=== PATIENT | male | born 1960 | race Caucasian/White ===

== ENCOUNTER 2023-07-08 16:32 | Emergency (ER) | payer MEDICARE, OTHER, SELFPAY ==
[2023-07-08 16:40] VITALS: BP 206/120; PULSE 64; RESP 16; TEMP 37.2; O2SAT 97; BMI 29.4
--- NOTE | 2023-07-08 16:45 | W.ED.EPISTAX ---
HPI - Epistaxis General: Chief complaint: Epistaxis Stated complaint: nose bleed (1:30pm) Time Seen by Provider: 07/08/23 16:45 History of Present Illness: 62-year-old male presents emerged department complaints of a nosebleed to the right side of his nose. He denies known injury or trauma. He states that started last night he does sleep with his window open does see with appropriate here. He states he has continued to bleed intermittently throughout the evening and again today started approximately 130 and is continued since then. He states that he has felt nauseated because he swallowed so much blood. He states she does take 81 mg aspirin per day and has a history of hypertension and has not missed any antihypertensive medications. He denies headache or blurred vision or dizziness. He denies chest pain or shortness of breath. Review of Systems General: Reports: 10 or more systems reviewed and unremarkable except in HPI and below ENMT: Reports: epistaxis Physical Exam Narrative: EXAM NARRATIVE: The patient appeared well nourished and normally developed. Vital signs as documented. Head exam is unremarkable. No scleral icterus or corneal arcus noted. Nose: Epistaxis noted to the right nare active bleeding with dried blood around the outer edges. Mucous membranes are moist Neck is without jugular venous distension, thyromegaly, or carotid bruits. Carotid upstrokes are brisk bilaterally. Lungs are clear to auscultation and percussion. Cardiac exam reveals the PMI to be normally sized and situated. Rhythm is regular. First and second heart sounds normal. No murmurs, rubs or gallops. Abdominal exam reveals normal bowel sounds, no masses, no organomegaly and no aortic enlargement. Extremities are non-edematous and both femoral and pedal pulses are normal. Procedures Epistaxis Control Time Out Performed: Yes Nostril: bilateral Direct Inspection: yes and posterior source indentified Clots Removed by: blowing nose Device Inserted: hemostatic balloon Device Size: 4 Patient Tolerated Procedure: well Course Vital Signs: Vital signs: Vital Signs Temperature 99.0 F 07/08/23 16:40 Pulse Rate 64 07/08/23 16:40 Respiratory Rate 16 07/08/23 16:40 Blood Pressure 206/120 07/08/23 16:40 Pulse Oximetry 97 07/08/23 16:40 Oxygen Delivery Me thod Room Air 07/08/23 16:40 MDM - Epistaxis Medical Decision Making Physical exam completed document, I will provide direct pressure as well as ice compress and attempts to clementina the patient's epistaxis. Medical Records I reviewed the patient's medical records. No radiology studies performed this visit Discharge Plan Discharge Patient Disposition: Home Clinical Impression: Epistaxis Condition: Stable Discharge Orders: Discharge ED (Routine); Ordered 07/08/23 Ordered By: Blayne Dimas Referrals: Luis Salas, [Physician] - Discharge Diet: Advance as tolerated Discharge Activity: Resume usual activity Patient Instructions: Opioid Safety, Pain Management Activity Restrictions/Additional Instructions: Activity Restrictions/Additional Instructions: Thank you for choosing [facility] for your healthcare needs today. Please realize that you were seen in the Emergency Department and that we are providing you with an emergency medical screening exam and this may not be complete and all inclusive of all the testing and or medical work-up that you may need to determine your ailment or severity of your illness. It is very important that you follow-up as instructed with your Primary care provider or Specialist for additional evaluation and to discuss your medical treatment plan. You may return to the Emergency Department should you have concerns or if your condition changes or worsens in any way. Coding Level of Care Code ED Loss Prevention Analyst for Annamarie Luke
--- NOTE | 2023-07-08 17:18 | PC.NURSE ---
170- Dr Dimas placed a large q tip in right nare 171- removed- clot came out with it- Dr looked in nare and seen the bleed, Dr at the bedside holding pressure 1725- rhino stef placed
[2023-07-08] MEDS: acetaminophen 500 mg Tablet 1000 MG PO (18:36)
== END 2023-07-08 18:40 | disposition home or self-care (01) ==
PROVIDERS: Emergency Provider Internal Medicine
DX: R04.0 Epistaxis (principal)
CPT/HCPCS: 30901; 99283

== ENCOUNTER 2024-04-26 23:51 | Inpatient (IN) | payer MEDICARE, SELFPAY ==
[2024-04-26 23:52] VITALS: BP 210/126; PULSE 82; RESP 82; TEMP 36.6; O2SAT 96; BMI 31.6
--- NOTE | 2024-04-26 23:57 | XRR_ITS ---
PROCEDURE INFORMATION: Exam: XR Chest Exam date and time: 04/27/2024 12:02 AM Age: 63 years old Clinical indication: Shortness of breath; Patient HX: EMS arrival fro SOB and hypoxia TECHNIQUE: Imaging protocol: Radiologic exam of the chest. Views: 1 view. COMPARISON: No relevant prior studies available. FINDINGS: Lungs: Septal lines noted in the periphery of each lung. Moderate pulmonary venous distension. Pleural spaces: Small right pleural effusion. No pneumothorax on either side. Heart/Mediastinum: Cardiomegaly. Vasculature: Azygos arch measures 1.6 cm in diameter. Normal contour aorta. Bones/joints: Age appropriate. XR/XR chest 1V portable [id number] IMPRESSION: Constellation of findings is compelling for biventricular heart failure.
--- NOTE | 2024-04-26 23:58 | ECG_ITS ---
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1960 Requested By: Cesar Harden Order Number: [id number] Akanksha MD: MORRIS MCDANIEL Measurements Intervals [place] Rate: 82 P: 45 AL: 212 QRS: 114 QRSD: 175 T: -5 QT: 429 QTc: 502 Interpretive Statements SINUS RHYTHM WITH FIRST DEGREE AV BLOCK POSSIBLE LEFT ATRIAL ENLARGEMENT [-0.1mV P-WAVE IN V1/V2] RIGHT AXIS DEVIATION [QRS AXIS > 100] LEFT BUNDLE BRANCH BLOCK [120+ ms QRS DURATION, 80+ ms Q/S IN V1/V2, 85+ ms R IN I/aVL/V5/V6] No previous ECG available for comparison Electronically Signed On 04-27-2024 18:51:11 CDT by MORRIS MCDANIEL [id number]
[2024-04-27] VITALS (13 sets, daily range): BP systolic 138–198; BP diastolic 82–116; PULSE 62–77; RESP 16–23; TEMP 36.7; O2SAT 93–97; BMI 31.1
[2024-04-27 00:07] LABS: Basophils # 0.1 10^3/uL (0.0-0.1); Basophils % 0.7 %; Eosinophils # 0.2 10^3/uL (0.0-0.8); Eosinophils % 1.6 %; Lymphocytes # 1.7 10^3/uL (0.8-4.8); Lymphocytes % 18.6 %; Mean Corpuscular HGB Conc 32.3 g/dL (30-55); Mean Corpuscular Hemoglobin 29.4 pg (27-33); Mean Corpuscular Volume 90.9 fl (82-101); Mean Platelet Volume 10.7 fL (7.4-10.4); Monocytes # 0.7 10^3/uL (0.2-0.9); Monocytes % 7.1 %; Neutrophils # 6.54 10^3/uL (1.8-7.7); Neutrophils % 71.7 %; Nucleated Red Blood Cells % 0 %; Platelet Count 161 10^3/cmm (157-399); Red Blood Count 4.73 10^6/uL (3.85-5.65); White Blood Count 9.13 10^3/uL (3.29-11.43)
[2024-04-27] MEDS: nitroglycerin 1 gm/inch oint Pkt 2 INCH TOPICAL (00:10)
--- NOTE | 2024-04-27 00:11 | ED_ITS ---
HPI - SOB/Dyspnea 2 General: Chief Complaint: Shortness of Breath/Dyspnea Stated Complaint: SOB Time Seen by Provider: 04/26/24 23:52 History of Present Illness: HPI Narrative: 63-year-old gentleman with what sounds l avis nonischemic cardiomyopathy. 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 He presents with onset of shortness of breath progressing over the last few hours. He called 911 when he felt as if he could not breathe on his own. He improved with Solu-Medrol, breathing treatment, and oxygen on the way here. His blood pressure was quite high on their arrival. He was given sublingual nitroglycerin for this and route. He denies fever. He denies sputum production. He has been coughing tonight. He denies chest pain. Related Data Allergies Allergy/AdvReac Type Severity Reaction Status Date / Time No Known Allergies Allergy Verified 07/08/23 16:38 Physical Exam 2 Const: GENERAL APPEARANCE: cooperative, ill appearing and diaphoretic; not frail appearing HENMT: COMMON NORMALS: normocephalic, atraumatic and Normal external nose present HEAD & SCALP: normocephalic and atraumatic FACE & SINUS: normal facial exam and face symmetric NOSE: Normal external nose present Eye: COMMON NORMALS: Equal, round and reactive pupils present and EOMs intact bilaterally PUPIL: Yes Equal, round and reactive pupils present Neck/C-Spine: GENERAL: Yes trachea midline Chest: CHEST: Yes Symmetrical chest wall rise Resp: EFFORT & INSPECTION: Yes symmetric chest movement, Yes tachypneic and Yes uses accessory muscles AUSCULTATION: rales and diminished lung sounds Cardio: COMMON NORMALS: regular rate and regular rhythm RATE: regular rate RHYTHM: regular rhythm GI: COMMON NORMALS: Normal to inspection, nondistended, normoactive bowel sounds present Extremity: GENERAL: Yes edema Neuro: DONNA COMA SCALE: document GCS findings Donna coma scale eye opening: Spontaneous Donna coma scale verbal response: Orientated Donna coma scale motor response: Obey commands [place] coma scale total score: 15 S ENSORY EXAM: Yes extremities (intact) Psych: COMMON NORMALS: speech normal SPEECH: Yes normal speech Skin: COMMON NORMALS: no rashes or lesions noted GENERAL SKIN EXAM: no rashes or lesions noted Course 2 Vital Signs: Vital signs: Vital Signs Temperature 98 F 04/26/24 23:52 Pulse Rate 75 09/08/24 01:01 Respiratory Rate 16 04/27/24 01:01 Blood Pressure 159/89 04/27/24 01:01 Pulse Oximetry 97 04/27/24 01:01 MDM - SOB/Dyspnea Medical Decision Making 63-year-old male with hypoxic respiratory failure. He was quite hypertensive on arrival. 2 inches of Nitropaste placed on the chest, 80 mg of Lasix given. Blood pressures down to the 160 systolic range. CBC is normal. BMP shows a blood sugar of 184 and a creatinine of 1.2. Chest x-ray shows pulmonary edema. Baseline troponin is 21. Lactic acid is 1.7. BNP is 4000. EKG shows a left bundle branch block. The patient does not have chest pain. He is breathing easier on oxygen. He is beginning to diurese. Notified hospitalist. He will be admitted for hypoxic respiratory failure with pulmonary edema. Lab Data 04/27/24 00:02 04/27/24 00:02 Labs/Radiology: Radiology Impressions Chest X-Ray 04/26/24 23:57 IMPRESSION: Constellation of findings is compelling for biventricular heart failure. Laboratory Results WBC 9.13 10^3/uL (3.29-11.43) 04/27/24 00:02 RBC 4.73 10^6/uL (3.85-5.65) 04/27/24 00:02 Hgb 13.90 g/dL (11.27-16.99) 04/27/24 00:02 Hct 43.0 % (37-53) 04/27/24 00:02 MCV 90.9 fl (82-101) 04/27/24 00:02 MCH 29.4 pg (27-33) 04/27/24 00:02 MCHC 32.3 g/dL (30-55) 04/27/24 00:02 RDW 15.0 % (12.1-15.1) 04/27/24 00:02 Plt Count 161 10^3/cmm (157-399) 04/27/24 00:02 MPV 10.7 fL (7.4-10.4) H 04/27/24 00:02 Neut % (Auto) 71.7 % 04/27/24 00:02 Lymph % (Auto) 18.6 % 04/27/24 00:02 [place] % (Auto) 7.1 % 04/27/24 00:02 Eos % (Auto) 1.6 % 04/27/24 00:02 Baso % (Auto) 0.7 % 04/27/24 00:02 Neut # (Auto) 6.54 10^3/uL (1.8-7.7) 04/27/24 00:02 Lymph # (Auto) 1.7 10^3/uL (0.8-4.8) 04/27/24 00:02 [place] # (Auto) 0.7 10^3/uL (0.2-0.9) 04/27/24 00:02 Eos # (Auto) 0.2 10^3/uL (0.0-0.8) 04/27/24 00:02 Baso # (Auto) 0.1 10^3/uL (0.0-0.1) 04/27/24 00:02 Nucleated RBC % (auto) 0 % 04/27/24 00:02 Nucleated RBCs # 0.0 /100WBC 04/27/24 00:02 Specimen Type Arterial 04/27/24 00:34 Sample Site Radial, right 04/27/24 00:34 ABG pH 7.39 (7.35-7.45) 04/27/24 00:34 ABG pCO2 49.0 mmHg (35-45) H 04/27/24 00:34 ABG pO2 63.2 mmHg (80.0-100.0) L 04/27/24 00:34 ABG PO2/FiO2 Ratio 1053 04/27/24 00:34 ABG HCO3 29.5 mmol/L (22-26) H 04/27/24 00:34 ABG Base Excess 3.5 mmol/L (-2.0-2.0) H 04/27/24 00:34 Robinson Test Pos 04/27/24 00:34 Hematocrit 44.0 % (42-52) 04/27/24 00:34 Hgb O2 Saturation 89.4 % (95-100) L 04/27/24 00:34 Carboxyhemoglobin 2.6 %THgb (0.4-20.1) 04/27/24 00:34 Methemoglobin 0.2 % (0.4-1.5) L 04/27/24 00:34 Total Hemoglobin 14.4 g/dL (14-18) 04/27/24 00:34 O2 Delivery Device Nc 04/27/24 00:34 FiO2 6.0 % 04/27/24 00:34 Trade Recruiter ID Jean Paul 04/27/24 00:34 Sodium 142 mmol/L (136-145) 04/27/24 00:02 Potassium 4.6 mmol/L (3.5-5.1) 04/27/24 00:02 Chloride 103 mmol/L (98-107) 04/27/24 00:02 Carbon Dioxide 28 mmol/L (22-29) 04/27/24 00:02 Anion Gap 15.6 (5-19) 04/27/24 00:02 BUN 29 mg/dL (8-23) H 04/27/24 00:02 Creatinine 1.2 mg/dL (0.7-1.2) 04/27/24 00:02 GFR Calculation 61.3 mL/min (90-130) L 04/27/24 00:02 Glucose 184 mg/dL (65-115) H 04/27/24 00:02 Calculated Osmolality 305 mOsm/kg (285-295) H 04/27/24 00:02 Lactic Acid 1.7 mmol/L (0.5-2.2) 04/27/24 00:02 Calcium 8.9 mg/dL (8.5-10.5) 04/27/24 00:02 Troponin T Baseline 21 ng/L (0-15) H 04/27/24 00:02 NT-Pro-B Natriuret Pep 4137 pg/mL (0-125) H 04/27/24 00:02 Urine Color Dark yellow (Yellow) A 04/27/24 00:33 Urine Appearance Error (CLEAR) A 04/27/24 00:33 Urine pH 7.0 (5-7) 04/27/24 00:33 Ur Specific [place] 1.021 (1.005-1.030) 04/27/24 00:33 Urine Protein Negative (Negative) 04/27/24 00:33 Urine Glucose (UA) Negative (Normal) 04/27/24 00:33 Urine Ketones Negative (Negative) 04/27/24 00:33 Urine Blood Negative (Negative) 04/27/24 00:33 Urine Nitrate Negative (Negative) 04/27/24 00:33 Urine Bilirubin Negative (Negative) 04/27/24 00:33 Urine Urobilinogen 1.0 mg/dL (Negative) 04/27/24 00:33 Ur Leukocyte Esterase Negative (Negative) 04/27/24 00:33 Urine RBC 0-2 /hpf (0-2) 04/27/24 00:33 Urine WBC 0-5 /hpf (0-5) 04/27/24 00:33 Ur Squamous Epith Cells 0-5 /hpf (0-5) 04/27/24 00:33 Amorphous Sediment Not Reportable 04/27/24 00:33 Urine Bacteria None seen /hpf (NONE) 04/27/24 00:33 Hyaline Casts 2.05 /lpf 04/27/24 00:33 All radiology interpretation(s) finalized by discharge Discharge Plan Discharge Patient Disposition: Admitted As Inpatient Clinical Impression: Acute hypoxic respiratory failure, Pulmonary edema Condition: Serious Coding Level of Care Code ED Computer Systems Hardware Analyst for Annamarie Luke
[2024-04-27] MEDS: FUROsemide 10 mg/mL SDV 10mL 80 MG IVP (00:13)
[2024-04-27 00:37] LABS: Charge for UA Resulting for Rev
[2024-04-27 00:37] LABS: Lactic Sepsis W/Reflex 1.7 mmol/L (0.5-2.2)
[2024-04-27 00:42] LABS: Troponin(5th) Baseline 21 ng/L (0-15)
[2024-04-27 00:47] LABS: Bacteria Urine None Seen /hpf; Hyaline Casts Urine 2.05 /lpf; RBC Urine 0-2 /hpf (0-2); Squamous Epithelial Cell Urine 0-5 /hpf (0-5); WBC Urine 0-5 /hpf (0-5)
[2024-04-27 00:48] LABS: Blood Urea Nitrogen 29 mg/dL (8-23); Calcium 8.9 mg/dL (8.5-10.5); Carbon Dioxide 28 mmol/L (22-29); Chloride 103 mmol/L (98-107); Creatinine Clr Calc Pharmacy 82.5904; Glomerular Filtration Rate 61.3 mL/min (90-130); Glucose 184 mg/dL (65-115); NT Pro B Type Natriuretic Pept 4137 pg/mL (0-125); Osmolality Calculated 305 mOsm/kg (285-295); Sodium 142 mmol/L (136-145)
[2024-04-27 00:50] LABS: ABG PH Result 7.39 (7.35-7.45); Base Excess ABG 3.5 mmol/L (-2.0-2.0); Blood Gas Allen Test Pos; Blood Gas Sample Type Arterial; Carboxyhemoglobin 2.6 %THgb (0.4-20.1); HCO3 ABG 29.5 mmol/L (22-26); HGB O2 Sat 89.4 % (95-100); Methemoglobin 0.2 % (0.4-1.5); PO2 ABG 63.2 mmHg (80.0-100.0); Total Hemoglobin 14.4 g/dL (14-18)
[2024-04-27 00:51] LABS: Blood Gas Operator Identificat SAM; Blood Gas Sample Site Radial, right; Oxygen Device NC; PO2 FiO2 Ratio Arterial Blood 1053
[2024-04-27 00:54] LABS: Anion Gap 15.6 (5-19); Potassium 4.6 mmol/L (3.5-5.1)
[2024-04-27 00:58] LABS: Bilirubin Urine Negative (Negative); Blood Urine Negative (Negative); Glucose Urine UA Negative (Normal); Ketones Urine Negative (Negative); Leukocyte Esterase Urine Negative (Negative); Nitrate Urine Negative (Negative)
--- NOTE | 2024-04-27 01:58 | ECG_ITS ---
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1960 Requested By: Cesar Harden Order Number: [id number] Akanksha MD: MORRIS MCDANIEL Measurements Intervals [place] Rate: 70 P: 30 DC: 192 QRS: 37 QRSD: 178 T: -51 QT: 456 QTc: 492 Interpretive Statements SINUS RHYTHM POSSIBLE LEFT ATRIAL ENLARGEMENT [-0.1mV P-WAVE IN V1/V2] LEFT BUNDLE BRANCH BLOCK [120+ ms QRS DURATION, 80+ ms Q/S IN V1/V2, 85+ ms R IN I/aVL/V5/V6] Compared to ECG 04/26/2024 23:55:29 First degree AV block no longer present Right-axis deviation no longer present Electronically Signed On 04-27-2024 18:57:03 CDT by MORRIS MCDANIEL [id number]
[2024-04-27 02:08] LABS: Adenovirus Not Detected (NOT DETECT); Chlamydia Pneumoniae Not Detected (NOT DETECT); Coronavirus 229E,HKU1,NL63,OC4 Not Detected (NOT DETECT); Human Metapneumovirus Not Detected (NOT DETECT); Human Rhinovirus/Enterovirus Not Detected (NOT DETECT); Influenza A Not Detected (NOT DETECT); Influenza A H1 Not Detected (NOT DETECT); Influenza A H1-2009 Not Detected (NOT DETECT); Influenza A H3 Not Detected (NOT DETECT); Influenza B Not Detected (NOT DETECT); Mycoplasma Pneumoniae Not Detected (NOT DETECT); Parainfluenza Virus Type 1 Not Detected (NOT DETECT); Parainfluenza Virus Type 2 Not Detected (NOT DETECT); Parainfluenza Virus Type 3 Not Detected (NOT DETECT); Parainfluenza Virus Type 4 Not Detected (NOT DETECT); Respiratory Syncytial Virus A Not Detected (NOT DETECT); Respiratory Syncytial Virus B Not Detected (NOT DETECT); SARS-COV-2 Not Detected (NOT DETECT)
[2024-04-27 02:19] LABS: Troponin 5 2HR 25.04 ng/L (0-15); Troponin 5 2HR Delta 4.04 ABS# (0-10)
--- NOTE | 2024-04-27 02:20 | CTR_ITS ---
PROCEDURE INFORMATION: Exam: CTA Chest With Contrast Exam date and time: 04/27/2024 3:51 AM Age: 63 years old Clinical indication: Shortness of breath; Patient HX: SOB with hypoxia. History of pericardial effusion. TECHNIQUE: Imaging protocol: Computed tomographic angiography of the chest with contrast. Exam focused on the arteries. 3D rendering (Not supervised by radiologist): MIP and/or 3D reconstructed images were created by the technologist. Radiation optimization: All CT scans at this facility use at least one of these dose optimization techniques: automated exposure control; mA and/or kV adjustment per patient size (includes targeted exams where dose is matched to clinical indication); or iterative reconstruction. Contrast material: OMNI 350; Contrast volume: 75 ml; Contrast route: INTRAVENOUS (IV); COMPARISON: CR (CHEST, ) 04/27/2024 12:02 AM RADIATION DOSE METRICS: Total DLP (mGy-cm): 440.51 FINDINGS: Pulmonary arteries: Within the left lower lobe there are a few partialfilling defects within the distal segmental and subsegmental pulmonary arteries. Aorta: Scattered atherosclerotic disease of the visualized aorta. Lungs: Scattered granulomas. Mosaic attenuation diffusely, likely secondary to air trapping. Pleural spaces: Bilateral pleural effusions with associated atelectasis. Heart: Unremarkable. No cardiomegaly. No pericardial effusion. Heart RV/LV ratio: The RV to LV ratio is 0.79. Coronary arteries: Moderate calcified atherosclerotic disease of the coronary vasculature. Lymph nodes: Scattered mediastinal lymph nodes not reaching size criteria for pathology. Left hilar and left mediastinal calcified lymph nodes. Liver: Hepatic granuloma. Spleen: Splenic granulomas. Bones/joints: Diffuse degenerative change of the visualized osseous structures. Soft tissues: Bilateral gynecomastia. CT/CT angio chest PE protcl [id number] IMPRESSION: 1. Partial filling defects within the segmental and subsegmental pulmonary arteries of the left lower lobe consistent with partially occlusive pulmonary emboli. No evidence for heart strain. 2. Bilateral pleural effusions with associated atelectasis, difficult to exclude infection. 3. Incidental findings as above.
--- NOTE | 2024-04-27 02:23 | P.HP_ITS ---
Providers/Chief Complaint 2 Admitting Physician: Yaw Bello MD Chief Complaint: SOB History of Present Illness Gen Stone is a 63 year old male with a past medical history of nonischemic cardiomyopathy, CAD OPD, who presents to [facility] for shortness of breath. Patient reports that this evening he had sudden onset shortness of breath, does report increased lower extremity edema, does report prior history of smoking, he denies wheezing, denies a cough, no fevers, no chills, denies any chest discomfort, no lightheadedness, no dizziness, no hemoptysis no recent surgery Review of Systems 2 Card: Denies: chest pain Resp: Reports: dyspnea Medications/Allergies Allergies Allergy/AdvReac Type Severity Reaction Status Date / Time No Known Allergies Allergy Verified 07/08/23 16:38 PFSH Acute 2 PFSH: Medical History History of CHF (congestive heart failure) History of COPD Surgical History S/P pericardiocentesis Family History Father Cancer Mother Colon cancer Social History (Updated 04/27/24 @ 02:26 by Yaw Bello MD) Smoking and tobacco/nicotine status: former use of tobacco/nicotine Alcohol intake: current Substance/Drug Use: never Vitals/I&O/Wt Last Vital Signs Temp 98 F 04/26/24 23:52 Pulse 71 04/27/24 02:07 Resp 18 04/27/24 02:07 BP 168/96 04/27/24 02:07 Pulse Ox 96 04/27/24 02:07 O2 Del Method Nasal Cannula 04/27/24 02:00 O2 Flow Rate 3 04/27/24 02:00 Weight last 48 hrs Weight 108.862 kg Physical Exam 2 Const: COMMON NORMALS: no acute distress and patient oriented x3 HENMT: COMMON NORMALS: normocephalic HEAD & SCALP: normocephalic Eye: COMMON NORMALS: Equal, round and reactive pupils present and EOMs intact bilaterally Neck/C-Spine: COMMON NORMALS: no JVD Resp: COMMON NORMALS: normal respiratory effort, No retractions and No use of accessory muscles Cardio: COMMON NORMALS: regular rate, regular rhythm, S1 normal heart sound present and S2 normal heart sound present RATE: regular rate RHYTHM: r egular rhythm HEART SOUNDS: S1 normal heart sound present and S2 normal heart sound present GI: COMMON NORMALS: Normal to inspection, nondistended, normoactive bowel sounds present, Soft to palpation and non-tender PALPATION: Yes Soft to palpation Extremity: NARRATIVE EXTREMITY EXAM: 2+ pitting edema bilateral extremity Neuro: COMMON NORMALS: patient oriented x3, CN's II-XII intact bilaterally and moves all extremities Psych: COMMON NORMALS: mental status grossly normal Data 04/27/24 00:02 04/27/24 00:02 Micro: Microbiology 04/27/24 00:25 Blood Culture - Preliminary Blood SPECIMEN COLLECTED 04/27/24 00:22 Blood Culture - Preliminary Blood SPECIMEN COLLECTED A&P Assessment and plan (1) Acute hypoxic respiratory failure: (2) Pulmonary edema: Plan Acute hypoxic respiratory failure -Likely secondary to CHF -Pulmonary edema Plan ? Given his sudden onset complaints of shortness of breath will order CT angiogram the chest to rule out pulmonary embolism -Given 80 mg IV push Lasix in the ER -Start 40 mg IV push Lasix starting at noon -Will recheck BMP at 8 AM -Monitor creatinine monitor urine output monitor potassium -Cardiac echo -Serial EKGs, serial troponins, telemetry monitoring -Full code -Lovenox for DVT prophylaxis ? Hypertension, and normal sinus 2 mg daily Attestations 2 Medical Necessity Statement*: Patient requires hospitalization, for acute hypoxic respiratory failure secondary to CHF, pulmonary edema, greater than 2 minutes Diagnoses Acute hypoxic respiratory failure J96.01 Pulmonary edema J81.1
--- NOTE | 2024-04-27 02:24 | USCV_ITS ---
Gen Stone Age: 63 Gender: M : 1960 Exam Date: 04/27/2024 09:13 Ordering Phys: Yaw Bello MD Technologist: Alex Tripathi [place] [facility] [place]: sob BP: 167 / 93 HR: 70 Rhythm: Sinus Technical Quality: Adequate MEASUREMENTS (Male / Female) Normal Values 2D ECHO LV Diastolic Diameter PLAX 4.3 cm 4.2 - 5.9 / 3.9 - 5.3 cm IVS Diastolic Thickness 1.5 cm 0.6 - 1.0 / 0.6 - 0.9 cm IVS Systolic Thickness 1.8 cm LVPW Diastolic Thickness 2.6 cm 0.6 - 1.0 / 0.6 - 0.9 cm LVPW Systolic Thickness 2.4 cm LVOT Diameter 2.1 cm LV Ejection Fraction 2D Teich 77.6 % LV Ejection Fraction MOD 4C 43.5 % LV Ejection Fraction MOD 2C 50.0 % LV Ejection Fraction 2C AL 50.9 % LA Diameter 3.1 cm RA Systolic Volume 4C AL 77.2 ml RA Systolic Volume 4C MOD 79.3 ml LA Sys Volume AL 82.2 cm cubed LA Sys Volume Index AL 34.8 cm cubed/m squared Aorta at Sinotubular Diameter 2.3 cm IVC Diameter 1.6 cm M-MODE LA Ao Ratio MM 1.2 AV Cusp Separation MM 1.9 cm DOPPLER AV Peak Velocity 196.0 cm/s LVOT Peak Velocity 154.0 cm/s AV Area Cont Eq vti 3.0 cm squared AV Area Cont Eq pk 2.8 cm squared MV Peak Velocity 107.0 cm/s MV Area PHT 4.7 cm squared Mitral E to A Ratio 1.2 TR Peak Velocity 144.0 cm/s TR Peak Gradient 8.3 mmHg TR Mean Velocity 100.0 cm/s TR Mean Gradient 4.6 mmHg TR Velocity Time Integral 39.3 cm PV Peak Velocity 152.0 cm/s RV Ejection Time 0.3 s FINDINGS Left Ventricle Mildly increased left ventricular cavity size. Moderately decreased left ventricular systolic function. Left ventricular ejection fraction is estimated at 45 %. Grade I/IV diastolic dysfunction (abnormal relaxation filling pattern), normal to mildly elevated filling pressures. Right Ventricle The right ventricle is normal in size and function. Right Atrium The right atrium is normal in size. Left Atrium The left atrium is normal in size. Mitral Valve Mildly thickened mitral valve. No mitral valve stenosis. Moderate mitral valve regurgitation. Aortic Valve Mild aortic valve calcification. No aortic valve stenosis. Mild to moderate aortic valve regurgitation. Tricuspid Valve Structurally normal tricuspid valve without significant stenosis or regurgitation. Pulmonary artery systolic pressure is normal. Pulmonic Valve Structurally normal pulmonic valve without significant stenosis. There is no pulmonic regurgitation. Pericardium Normal pericardium without effusion. Aorta Normal ascending aorta dimension. IVC The inferior vena cava appears normal. CONCLUSIONS 1-Mildly increased left ventricular cavity size. Moderately decreased left ventricular systolic function. Left ventricular ejection fraction is estimated at 45 %. Grade I/IV diastolic dysfunction (abnormal relaxation filling pattern), normal to mildly elevated filling pressures. 2-Mildly thickened mitral valve. No mitral valve stenosis. Moderate mitral valve regurgitation. 3-Mild aortic valve calcification. No aortic valve stenosis. Mild to moderate aortic valve regurgitation. 4-There is no pericardial effusion. 5-Right atrial pressure is around 5 mm of mercury. Nathen Lagunas MD (Electronically Signed) Final Date: 27 April 2024 17:42 S
[2024-04-27 02:51] LABS: Estmated Average Glucose 120; Hemoglobin A1C 5.8 % (4.0-6.0)
[2024-04-27 03:00] LABS: Chol HDL Ratio 4.92 mg/dL (1.0-5.00); Cholesterol 182 mg/dL (0-200); HDL Cholesterol 37 mg/dL (60-100); LDL Cholesterol Calculated 134 mg/dL (50-129); LDL HDL Ratio 3.62 RATIO (0.00-3.22); Magnesium 1.8 mg/dL (1.7-2.3); Thyroid Stimulating Hormone 2.24 uIU/mL (0.27-4.20); Triglycerides 56 mg/dL (0-150)
[2024-04-27] MEDS: pantoprazole 40 mg SDV IVP (03:29)
[2024-04-27] MEDS: amlodipine 10 mg Tablet PO (03:29)
[2024-04-27] MEDS: enoxaparin 40 mg/0.4 mL Syringe SUBCUT (03:29)
[2024-04-27] MEDS: iohexol 350 mg/mL 500 mL Btl (per mL) IV (04:00)
[2024-04-27] MEDS: enoxaparin 80 mg/0.8 mL Syringe 70 MG SUBCUT (05:57)
--- NOTE | 2024-04-27 05:58 | ECG_ITS ---
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
[2024-04-27 06:29] LABS: Troponin 5 6HR 20.07 ng/L (0-15)
[2024-04-27 06:31] LABS: Troponin 5 6HR Delta -0.93 ng/L (0-12)
[2024-04-27 08:26] LABS: Anion Gap 15.9 (5-19); Blood Urea Nitrogen 31 mg/dL (8-23); Calcium 9.5 mg/dL (8.5-10.5); Carbon Dioxide 27 mmol/L (22-29); Chloride 101 mmol/L (98-107); Creatinine Clr Calc Pharmacy 89.0106; Glomerular Filtration Rate 67.8 mL/min (90-130); Glucose 192 mg/dL (65-115); Osmolality Calculated 302 mOsm/kg (285-295); Potassium 3.9 mmol/L (3.5-5.1); Sodium 140 mmol/L (136-145)
[2024-04-27 10:54] LABS: Amphetamines Screen Urine Negative (Negative); Barbiturates Screen Urine Negative (Negative); Benzodiazepines Screen Urine Negative (Negative); Cocaine Screen Urine Negative (Negative); Opiate Screen Urine Negative (Negative); PCP Screen Urine Negative (Negative); THC Screen Urine Negative (Negative)
[2024-04-27 11:03] LABS: Vitamin B12 530 pg/mL (232-1245)
--- NOTE | 2024-04-27 11:08 | P.SS_ITS ---
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 Patient reports that this evening he had sudden onset shortness of breath, does report increased lower extremity edema, does report prior history of smoking, he denies wheezing, denies a cough, no fevers, no chills, denies any chest discomfort, no lightheadedness, no dizziness, no hemoptysis no recent surgery. Review of Systems General: Reports: 10 or more systems reviewed and unremarkable except in HPI and below Const: Denies: fever(s), chills, body aches, change in appetite, change in weight, malaise, night sweats, diaphoresis, change in sleep pattern, daytime sleepiness or snoring Eyes: Denies: change in vision, blurry vision, photophobia, eye discomfort or eye discharge ENMT: Denies: throat pain, enlarged tonsils, hoarseness, mouth pain, oral sores, dry mouth, tinnitus, nasal congestion or post nasal drip Card: Denies: chest pain, palpitations, irregular heart rhythm, edema, swelling of feet/ankles, lightheadedness, syncope, pre-syncope, dyspnea on exertion, orthopnea, leg pain with exertion or acrocyanosis Resp: Denies: dyspnea, productive cough, non-productive cough, wheezing, stridor, pain on inspiration, change in phlegm color, hemoptysis or chest congestion GI: Denies: abdominal pain, nausea, vomiting, hematemesis, coffee ground emesis, dysphagia, heartburn, diarrhea, constipation, bloating, GI cramping, change in bowel habits, pain on defecation, hematochezia or melena : Denies: flank pain, difficulty urinating, dysuria, urinary frequency, urinary urgency, urinary hesitancy, urinary dribbling, difficulty starting urination, change in urine stream, nocturia or hematuria Musc: Denies: neck pain, back pain, extremity pain, joint pain, joint s welling, joint redness, joint stiffness or limited range of motion Neuro: Denies: headache(s), numbness in extremities, weakness in extremities, sensory changes, lack of coordination, difficulty walking, frequent falls, dizziness, vertigo, confusion, Slurred speech present, difficulty communicating thoughts or seizure-like activity Psych: Denies: anxiety, depression, mood swings, panic attacks, hopelessness or irritability Endo: Denies: polyuria, polydipsia, tired all the time, cold intolerance, excessive sweating, flushing or heat intolerance Greg/Lymph: Denies: easy bruising or easy bleeding All/Imm: Denies: tongue swelling, facial swelling or acute wheezing Home Meds/Allergies Home Medications and Allergies Home Medications Medication Instructions Recorded Confirmed Type bumetanide 1 mg tablet 1 mg PO DAILY 04/27/24 04/27/24 History carvedilol 25 mg tablet 37.5 mg PO BID 04/27/24 04/27/24 History doxazosin 8 mg tablet 8 mg PO BID 04/27/24 04/27/24 History doxycycline hyclate 100 mg tablet 100 mg PO DAILY 04/27/24 04/27/24 History irbesartan 300 mg tablet 300 mg PO DAILY 04/27/24 04/27/24 History potassium chloride 20 mEq 20 meq PO PRN PRN Electrolyte 04/27/24 04/27/24 History tablet,extended Replenishment release(part/cryst) (Klor-Con M) spironolactone 25 mg tablet 25 mg PO DAILY 04/27/24 04/27/24 History Allergies Allergy/AdvReac Type Severity Reaction Status Date / Time No Known Allergies Allergy Verified 07/08/23 16:38 PFSH Acute PFSH: Medical History (Updated 04/27/24 @ 11:13 by Ritesh Lott MD) Hyperlipidemia Congestive heart failure Nonischemic cardiomyopathy History of COPD Surgical History S/P pericardiocentesis Family History Father Cancer Mother Colon cancer Social History (Updated 04/27/24 @ 02:26 by Yaw Bello MD) Smoking and tobacco/nicotine status: former use of tobacco/nicotine Alcohol intake: current Substance/Drug Use: never Vitals/I&O/Wt Last Vital Signs Temp 98.0 F 04/27/24 07:50 Pulse 72 04/27/24 07:50 Resp 23 H 04/27/24 07:50 BP 167/93 04/27/24 07:50 Pulse Ox 95 04/27/24 07:50 O2 Del Method Room Air 04/27/24 07:50 O2 Flow Rate 3 04/27/24 02:00 04/26/24 04/27/24 04/27/24 22:59 06:59 14:59 Intake Total 480 / 480 Output Total 1200 / 1200 Balance -1200 / -1200 480 / 480 Weight last 48 hrs Weight 106.1 kg Weight 106.9 kg Weight 108.862 kg Physical Exam Narrative: General: No acute distress, AO x3, pleasant HEENT: PERRLA, pupils bilaterally equal and reactive Chest: Normal vesicular breath sounds, no added sounds, equal good air entry bilaterally CVS: S1-S2 regular, soft pansystolic murmur at apex no tachycardia, no gallops, no rubs Abdomen: Soft, nontender, no organomegaly, bowel sounds present Neuro: No focal deficits, no facial deformity, AO x3, power 5/5 in all limbs Hospital Course Admission Diagnoses Hypoxic respiratory failure due to pulmonary emboli Discharge Summary He was admitted to the hospital further evaluation and management of acute hypoxic and hypercapnic respiratory failure in setting of baseline nonischemic cardiomyopathy with possible congestive heart failure. He states he is supposed to be taking a diuretic as needed which he usually takes as less as possible because usually he gets severe cramps after taking diuretics. In the ER he underwent CTA which showed partial filling defect in left lower lobe consistent with partially occlusive pulmonary emboli without evidence of heart strain. Patient was started on full dose anticoagulation with Lovenox 1 mg/kg body weight every 12 hourly. Echocardiogram was done but results are currently pending. Patient wanted to be discharged home because he has to take care of his dog at home and remains on room air and hemodynamically stable during hospitalization hence he has been discharged in hemodynamically stable condition on his current antihypertensive, diuretics along with Eliquis 10 mg twice daily for next 7 days followed by 5 mg twice daily. Patient was encouraged in detail to have a local primary care provider to take care of his medical needs given his significant comorbidities. SSS Data Data Completed and Pending: Completed Studies During Hospitalization Category Date Time Status CT angio chest PE protcl [id number] Stat Cat Scan 04/27/24 02:20 Completed XR chest 1V deja ble [id number] Stat Exams 04/26/24 23:57 Completed Pending at discharge Category Date Time Status Blood Culture Sta t Lab 04/27/24 00:25 Results Complete Blood Co unt w/Auto AM LABS Lab 04/28/24 04:00 Ordered Comprehensive Met abolic Panel AM LA BS Lab 04/28/24 04:00 Ordered Folate Level AM L ABS Lab 04/28/24 04:00 Ordered MAG [Magnesium] A M LABS Lab 04/28/24 04:00 Ordered MAG [Magnesium] A M LABS Lab 04/29/24 04:00 Ordered MAG [Magnesium] A M LABS Lab 04/30/24 04:00 Ordered CV. echo complete * [id number] Routine Ultrasound 04/27/24 02:24 Taken Diagnoses at Discharge Discharge Diagnosis (1) Acute hypoxic respiratory failure: Status: Acute (2) Pulmonary edema: Status: Acute (3) Nonischemic cardiomyopathy: Status: Acute (4) Congestive heart failure: Status: Acute (5) Pulmonary emboli: Status: Acute Discharge Plan Discharge Patient Disposition: Home Condition: Stable Prescriptions: New Eliquis 5 mg tablet 5 mg PO BID 90 Days Qty: 180 0RF Rx Instructions: 10 mg twice daily for 7 days followed by 5 mg twice daily Continued carvedilol 25 mg tablet 37.5 mg PO BID doxazosin 8 mg tablet 8 mg PO BID doxycycline hyclate 100 mg tablet 100 mg PO DAILY irbesartan 300 mg tablet 300 mg PO DAILY potassium chloride [Klor-Con M20] 20 mEq tablet,ER particles/crystals 20 meq PO PRN MDD 20 PRN (Reason: Electrolyte Replenishment) spironolactone 25 mg Tablet 25 mg PO DAILY Bumex 1 mg Tablet 1 mg PO DAILY Discharge Orders: Discharge Order (Routine); Ordered 04/27/24 Ordered By: Ritesh Lott Discharge Diet: Cardiac Discharge Activity: Resume usual activity and Increase activity as tolerated Patient Instructions: Opioid Safety Activity Restrictions/Additional Instructions: Take Eliquis 10 mg twice daily for next 7 days followed by 5 mg twice daily. Follow-up with a outpatient business administration instructor within next 2 months. You should have a primary care provider with whom you should follow-up within next 1 week. Attestations Medical Necessity Statement*: Patient required admission for hypoxic respiratory failure in setting of nonischemic cardiomyopathy and pulmonary embolism who responded drastically well to the treatment and has remained hemodynamically stable and is currently on room air both at rest and ambulation Time Spent in Patient Care*: greater than 30 min Specific Discharge Activities: Specific discharge activities: educating patient, discussing with pcp/other providers, discussing with pillowcase folder/social workers/dc planners, documenting/other paperwork and evaluating patient/reviewing data Status at Discharge: Cognitive status at discharge: cognitively intact , Behavioral status at discharge: cooperative , Functional status at discharge: independent ambulation Overall status at discharge: patient is back to baseline Quality Metrics Clinical Quality Measures: [ Venous Thromboembolism { Contraindication to Overlap Therapy: None; Overlap threrpy ordered; VTE Discharge Education: Education about anticoagulant therapy/Care Notes given, Education about treatment options/disease process, Medication side effects education, INR/lab monitoring education as applicable, Follow-up arranged, Other; Deep Vein Thrombosis/Pulmonary Embolism Present on Admission: Yes;} ] Diagnoses Acute hypoxic respiratory failure J96.01 Pulmonary edema J81.1 Nonischemic cardiomyopathy I42.8 Congestive heart failure I50.9 Pulmonary emboli I26.99
[2024-04-27] MEDS: carvedilol 3.125 mg Tablet PO (11:34)
[2024-04-27] MEDS: FUROsemide 10 mg/mL SDV 4mL 40 MG IVP (11:34)
[2024-04-27 11:37] LABS: Specific Gravity, Urine 1.008 (1.005-1.030); Urine Appearance Clear (CLEAR); Urine Color Yellow (Yellow)
[2024-04-27 11:38] LABS: Protein Urine 2+ (Negative); Urobilinogen Urine 0.2 mg/dL (Negative)
--- NOTE | 2024-04-27 16:42 | PC.NURSE ---
Patient stayed an extended period of time after discharge because he was using [employer] to get home and I had just given him Lasix and he didn't think the company tanker truck driver would stop to let him urinate on the way home so he wanted to wait until the Lasix wore off. Discharged at 1640. Instructions given and pt reminded to picker and sorter load and unload his Eliquis at [facility] tomorrow.
== END 2024-04-27 16:42 | disposition home or self-care (01) | DRG 175 ==
LOC: ER 04-27 01:32 → CSU 04-27 01:53
PROVIDERS: Admitting Provider Family Medicine; Emergency Provider Emergency Medicine; Visit Provider Student in an Organized Health Care Education/Training Program
DX: I26.99 Other pulmonary embolism without acute cor pulmonale (principal); J96.01 Acute respiratory failure with hypoxia; J96.02 Acute respiratory failure with hypercapnia; I42.8 Other cardiomyopathies; E78.5 Hyperlipidemia, unspecified; I50.9 Heart failure, unspecified; I25.10 Atherosclerotic heart disease of native coronary artery without angina pectoris; Z87.891 Personal history of nicotine dependence
CPT/HCPCS: 36415; 36600; 71045; 71275; 80048; 80061; 80306; 81003; 81015; 82607; 82805; 83036; 83605; 83735; 83880; 84443; 84484; 85025; 87040; 87486; 87581; 87633; 93005; 93306; 94664; 96372; 96374; 99285; J1650; J1940; J2470

== ENCOUNTER 2024-07-14 14:45 | Outpatient (CLI) | payer MEDICARE, SELFPAY ==
--- NOTE | 2024-07-14 14:49 | USCV_ITS ---
Gen Stone Age: 63 Gender: M : 1960 Exam Date: 07/14/2024 15:09 Ordering Phys: Tammy Ghotra DNP Technologist: CT [place] [facility] [place]: BP: 140 / 89 HR: Rhythm: Sinus Technical Quality: Adequate MEASUREMENTS (Male / Female) Normal Values 2D ECHO LVOT Diameter 2.0 cm LV Ejection Fraction MOD 4C 44.2 % LV Ejection Fraction MOD 2C 63.6 % LV Ejection Fraction 2C AL 65.4 % LA Diameter 4.5 cm RA Systolic Volume 4C AL 63.3 ml RA Systolic Volume 4C MOD 62.0 ml LA Sys Volume AL 63.1 cm cubed LA Sys Volume Index AL 27.1 cm cubed/m squared Aorta at Sinotubular Diameter 2.1 cm IVC Diameter 1.5 cm M-MODE LA Ao Ratio MM 1.3 AV Cusp Separation MM 2.3 cm FINDINGS Left Ventricle Normal left ventricular size and systolic function, EF 45%. Mild left ventricular hypertrophy. Abnormal septal motion consistent with conduction abnormality. Right Ventricle The right ventricle is normal in size and function. Right Atrium The right atrium is normal in size. Left Atrium The left atrium is normal in size. Mitral Valve No gross morphology abnormalities noted Aortic Valve No gross morphology abnormalities noted Tricuspid Valve No gross morphology abnormalities noted Pulmonic Valve No gross morphology abnormalities noted Pericardium Normal pericardium without effusion. Aorta Normal ascending aorta dimension. IVC The inferior vena cava appears normal. CONCLUSIONS Normal left ventricular size with diminished ejection fraction of, 45%. Mild left ventricular hypertrophy. Abnormal septal motion consistent with conduction abnormality. Normal chamber sizes. No intracardiac masses. No pericardial effusion Compared to the study from 04/27/2024, there may not be a significant change Dr Endy Hoskins MD FACC (Electronically Signed) Final Date: 14 July 2024 21:13 S
[2024-07-14 15:44] LABS: Anion Gap 11.8 (5-19); Blood Urea Nitrogen 31 mg/dL (8-23); Calcium 9.3 mg/dL (8.5-10.5); Carbon Dioxide 27 mmol/L (22-29); Chloride 100 mmol/L (98-107); Glomerular Filtration Rate 51.4 mL/min (90-130); Glucose 90 mg/dL (65-115); NT Pro B Type Natriuretic Pept 973 pg/mL (0-125); Osmolality Calculated 284 mOsm/kg (285-295); Potassium 4.8 mmol/L (3.5-5.1); Sodium 134 mmol/L (136-145)
== END 2024-07-14 14:46 | disposition home or self-care (01) ==
PROVIDERS: PCP Internal Medicine Cardiovascular Disease; Visit Provider Nurse Practitioner Adult Health
DX: I50.20 Unspecified systolic (congestive) heart failure (principal); I51.0 Cardiac septal defect, acquired
CPT/HCPCS: 36415; 80048; 83880; 93308